=== PATIENT | male | born 1950 | race Caucasian/White ===

== ENCOUNTER 2016-12-13 02:56 | Inpatient (IN) | payer OTHER ==
[~2016-12-13] VITALS: Ht 182.9 cm; Wt 90.7 kg
[2016-12-13] MEDS ORDERED: ATORVASTATIN CA80 M1 PO (07:53)
[2016-12-13] MEDS ORDERED: METOPROLOL SUCC50 M2 PO (07:53)
[2016-12-13] MEDS ORDERED: EFFIENT10 M1 PO (07:54)
[2016-12-13] MEDS ORDERED: ASPIRIN EC81 M1 PO (07:55)
[2016-12-13 17:00] VITALS: BP 128/72
--- NOTE | 2016-12-13 17:39 | Operative Report ---
Operative/Inv Procedure Report Surgery Date: 12/13/16 Name of Procedure: Left common femoral thromboendarterectomy with bovine patch angioplasty Pre-Operative Diagnosis: PAD with severe life limiting bilateral claudication Post-Operative Diagnosis: PAD with severe life limiting bilateral claudication Estimated Blood Loss: 450 cc Surgeon/Inventory Control Supervisor: FERNANDO LUNA,AYLEEN ARRINGTON MD, ALFREDO (asst.) Anesthesia: general endotracheal tube Drains: Buenrostro catheter removed at completion of procedure Specimens: Sent to pathology Complications: None Condition: Stable to PACU Operative Indication: 66-year-old male with a history of severe PAD. He had a right femoropopliteal bypass many years ago which is patent. He has recently had severe left-sided life limiting claudication. He has a high-grade left femoral stenosis. Risks benefits and alternatives were discussed with the patient including bleeding, infection, nerve injury and limb loss. He decided to proceed with intervention. Operative/Procedure Note Note: Patient brought to the operating room and laid supine on the table. A timeout was held in accordance with [place] policy. Left longitudinal femoral incision ensued. Sharp dissection proceeded down through skin and subcutaneous tissue. This was done with Metzenbaum scissors and Bovie electrocautery. The common femoral artery was noted to be densely calcified without a pulse. The common femoral, profunda femoris and SFA were dissected free. The external iliac artery was controlled. The patient was post with 6000 units of heparin. The artery was then opened with Younger scissors and an 11 blade. The artery was densely calcified. A long femoral endarterectomy with bovine patch angioplasty then ensued. A bovine pericardial patch was sewn onto the artery after a dense plaque was removed with a [place] elevator. It was passed off the field as specimen. Attention was turned to closure of the artery. A series of Prolene sutures were used to tack down the distal superficial femoral artery. The artery was then repaired with 50 and 6-0 Prolene sutures. The pericardial patch was secured with a running 5-0 Prolene suture. The wound was copiously irrigated. Several areas of bleeding were noted at the distal and proximal portion of the patch. A clamp injury was repaired with interrupted Prolene sutures. A rent in the distal SFA was also repaired with interrupted Prolene sutures. Hemostasis proved to be excellent. The wound was irrigated and then closed with interrupted 2-0 and 3-0 Vicryl sutures. The skin was closed with nylon stures and interrupted tamiko. The patient tolerated the procedure well was transported to the floor with an intact neurovascular exam. He had dopplerable signals in both feet.
--- NOTE | 2016-12-13 17:42 | PN- Vascular Surgery ---
Subjective Subjective: Post Op Note Patient without c/o. Pain controlled. Denies numbness/tingling in LLE. Patient has remained flat for 1 hour post op and is bedrest tonight. Denies n/v. Denies CP/SOB. Objective Vital Signs and I&Os AVSS Physical Exam: Gen: NAD, comfortable, A&Ox3 Chest: NRD, breathing comfortably on 2L NC. RRR. Abd: Soft, NT, ND Ext: left groin/leg incision c/d/i. No surrounding erythema/swelling. 2+ DP pulses BLE. 2+ PT RLE. Dopplerable DP LLE. No calve swelling/TTP. Current Medications: Current Medications Sig/Supriya Start time Last Medication Dose Route Stop Time Status Admin Aspirin Buffered 81 MG DAILY 12/14 1000 DC PO Aspirin Buffered 81 MG DAILY 12/14 1000 UNVr PO Atorvastatin Calcium 80 MG DAILY 12/14 1000 DC PO Atorvastatin Calcium 80 MG DAILY 12/14 1000 UNVr PO Dextrose/Sodium 1,000 ML .[id number] 12/13 1745 UNVr Chloride IV Docusate Sodium 100 MG DAILY NEEDED PRN 12/13 1745 UNVr PO Metoprolol Succinate 50 MG DAILY 12/14 1000 DC PO Metoprolol Succinate 50 MG DAILY 12/14 1000 UNVr PO Morphine Sulfate 2 MG Q2P PRN 12/13 1745 UNVr IV Morphine Sulfate 4 MG Q2P PRN 12/13 1745 UNVr IV Ondansetron HCl 4 MG Q6P PRN 12/13 1745 UNVr IV Oxycodone/ 1 TAB Q4P PRN 12/13 1745 UNVr Acetaminophen PO Oxycodone/ 2 TAB Q4P PRN 12/13 1745 UNVr Acetaminophen PO Prasugrel 10 MG DAILY 12/14 1000 DC PO Prasugrel 10 MG DAILY 12/14 1000 UNVr PO Assessment/Plan Assessment/Plan 66yo M POD#0 s/p left femoral endarterectomy. AVSS, patient stable. - ASA 325mg PO x1 tonight - asa 81mg po and effient 10mg po QD starting tomorrow - bedrest tonight, oob and ambulate in a.m. - pain control - advance diet as tolerated - ancef x1 dose post op for ppx - I/O's - dc IVF when tolerating diet - ALPS - neuro checks Q4H Core Measures/Miscellaneous Venous Thromboembolism VTE Risk Factors: Age > 40, Surgery VTE Contraindications: No Contraindications VTE Prophylaxis Ordered Inpt: Mech & Pharm VTE Diagnosis: No Beta Suzanne Is Beta Suzanne a Home Med? Yes If Yes, Was This Ordered Today? Yes Antibiotics Is Patient on Antibiotics? Yes (x1 dose post op)
[2016-12-13 19:36] VITALS: BP 112/56
--- NOTE | 2016-12-13 20:13 | NUR ---
17:00- PT ARRIVED TO FLOOR VIA STRETHER FROM PACU. REPORT REC'D FROM RBYSON RODEO PERFORMER. SU REMOVED IN PACU. PT DUE TO VOID BY 21:00. L GROIN DRESSING C,D,I. PALPABLE PULSES TO L PEDAL AND L POSTERIOR TIBIAL. PER SURG DANIELLE MORALES, PT TO REMAIN ON BEDREST TONIGHT AND CAN BE OOB TOMORROW MORNING. 18:00- PT VOIDED 300 ML.
[2016-12-13 21:30] VITALS: BP 112/60
[2016-12-13 23:13] VITALS: BP 118/52
[2016-12-14 05:00] VITALS: BP 102/70
--- NOTE | 2016-12-14 07:45 | PN- Vascular Surgery ---
Subjective Subjective: NAEO. Patient without new c/o. Pain well controlled. States he has good sensation in his LLE. Has not been OOB yet, was on bedrest overnight. Tolerating diet without n/v. +flatus, no BM. Voiding. Denies CP/SOB. Objective Vital Signs and I&Os Vital Signs Date Time Temp Pulse Resp B/P Pulse O2 O2 Flow FiO2 Ox Delivery Rate 12/14 0500 97.1 58 20 102/70 95 Room Air 12/13 2313 97.7 66 20 118/52 96 Room Air 12/13 2130 97.7 65 20 112/60 95 Room Air 12/13 1936 97.6 68 20 112/56 96 Room Air 12/13 1700 97.8 70 18 128/72 95 Room Air Intake & Output 12/14 0800 12/14 0000 12/13 1600 12/13 0800 12/13 0000 12/12 1600 Intake Total 225 Output Total 300 Balance -75 Intake, IV 225 Output, Urine 300 Patient 200 lb Weight Physical Exam: Gen: NAD, comfortable, A&Ox3 Chest: NRD, breathing comfortably on 2L NC. RRR. Abd: Soft, NT, ND Ext: left groin/leg incision c/d/i. No surrounding erythema/swelling. 2+ DP pulses BLE. 2+ PT RLE. Dopplerable DP LLE. No calve swelling/TTP. Current Medications: Current Medications Sig/Supriya Start time Last Medication Dose Route Stop Time Status Admin Acetaminophen 1,000 MG .STK-MED ONE 12/13 1029 DC IV 12/13 1030 Aspirin 325 MG .STK-MED ONE 12/13 1458 DC PO 12/13 1459 Aspirin Buffered 81 MG DAILY 12/14 1000 DC PO Aspirin Buffered 81 MG DAILY 12/14 1000 AC PO Atorvastatin Calcium 80 MG DAILY@1700 12/14 1700 AC PO Atorvastatin Calcium 80 MG DAILY 12/14 1000 DC PO Cefazolin Sodium 2 GM IQ8 12/14 0000 DC 12/13 N/A 1 UNIT IV 12/14 0029 2315 Dextrose/Sodium 1,000 ML .[id number] 12/13 1745 DC 12/14 Chloride IV 0428 Docusate Sodium 100 MG DAILY NEEDED PRN 12/13 1745 AC PO Fentanyl Citrate 250 MCG .STK-MED ONE 12/13 1029 DC IM 12/13 1030 Hydromorphone HCl 2 MG .STK-MED ONE 12/13 1145 DC IM 12/13 1146 Metoprolol Succinate 50 MG DAILY 12/14 1000 DC PO Metoprolol Succinate 50 MG DAILY 12/14 1000 AC PO Midazolam HCl 2 MG .STK-MED ONE 12/13 1029 DC IM 12/13 1030 Morphine Sulfate 2 MG Q2P PRN 12/13 1745 AC IV Morphine Sulfate 4 MG Q2P PRN 12/13 1745 AC IV Ondansetron HCl 4 MG Q6P PRN 12/13 1745 AC IV Oxycodone/ 1 TAB Q4P PRN 12/13 1745 AC 12/14 Acetaminophen PO 0406 Oxycodone/ 2 TAB Q4P PRN 12/13 1745 AC Acetaminophen PO Prasugrel 10 MG DAILY 12/14 1000 DC PO Prasugrel 10 MG DAILY 12/14 1000 AC PO Assessment/Plan Assessment/Plan 66yo M POD#1 s/p left femoral endarterectomy. AVSS, patient stable. - asa 81mg po and effient 10mg po QD starting today - oob and ambulate, first time with assist - pain control - advance diet as tolerated - ancef complete, no more abx - I/O's - dc IVF - ALPS - neuro checks - f/u a.m. labs - dc home this morning if labs stable - will d/w attending Core Measures/Miscellaneous Venous Thromboembolism VTE Risk Factors: Age > 40, Surgery VTE Contraindications: No Contraindications VTE Prophylaxis Ordered Inpt: Mech & Pharm VTE Diagnosis: No Beta Suzanne Is Beta Suzanne a Home Med? Yes If Yes, Was This Ordered Today? Yes Antibiotics Is Patient on Antibiotics? No
[2016-12-14] MEDS ORDERED: PERCOCET 5-3251 EACH PO (07:46)
--- NOTE | 2016-12-14 07:50 | Patient Discharge Instructions ---
Discharge Instructions General Discharge Information You were seen/treated for: PAD with severe life limiting bilateral claudication You had these procedures: 12/13/16 Left common femoral thromboendarterectomy with bovine patch angioplasty Watch for these problems: Redness, swelling, drainage, fever, signs of infection. Increased left lower extremity pain, numbness, paresthesia. Excessive bleeding. Uncontrolled pain. Chest pain. Shorts of breath. Do not soak the wound: Yes No bath, but you may shower: Yes Diet Continue normal diet: Yes Activity Full Activity/No Limits: No Pounds, do NOT lift more than: 15 Activity Limited to: Weight bear as tolerated Other activity limits: No strenuous activity and/or exercise Additional ACTIVITY Info: Please follow directions provided by surgeon in office. Acute Coronary Syndrome Inclusion Criteria At DC or during hospital stay patient has or had the following: ACS DIAGNOSIS No Discharge Core Measures Meds if any: Prescribed or Continued at Discharge Meds if any: NOT Prescribed or Continued at Discharge Congestive Heart Failure Inclusion Criteria At DC or during hospital stay patient has or had the following: CHF DIAGNOSIS No Discharge Core Measures Meds if any: Prescribed or Continued at Discharge Meds if any: NOT Prescribed or Continued at Discharge Cerebrovascular accident Inclusion Criteria At DC or during hospital stay patient has or had the following: CVA/TIA Diagnosis No Discharge Core Measures Meds if any: Prescribed or Continued at Discharge Meds if any: NOT Prescribed or Continued at Discharge Venous thromboembolism Inclusion Criteria VTE Diagnosis No VTE Type NONE VTE Confirmed by (Test) NONE Discharge Core Measures - Per Current guidelines, there needs to be overlap - treatment for the first 5 days of Warfarin therapy. - If discharged on Warfarin prior to 5 days of - overlap therapy, the patient will need to be - assessed for post discharge needs including - *Post discharge parental anticoagulation - *Warfarin and/or parental anticoagulation education - *Follow up date to check INR post discharge At least 5 days overlap therapy as Inpatient No Meds if any: Prescribed or Continued at Discharge Note: Overlap Therapy is Warfarin and Anticoagulant Meds if any: NOT Prescribed or Continued at Discharge
--- NOTE | 2016-12-14 07:52 | Surg Short-stay <48hrs Dis Sum ---
Visit Information Visit Dates Admission Date: 12/13/16 Discharge Date: 12/14/2016 Surgical Short Stay DC Summary Admission Diagnosis: PAD with severe life limiting bilateral claudication Final Diagnosis: Same Procedure(s): 12/13/16 Left common femoral thromboendarterectomy with bovine patch angioplasty. Summary/Significant Findings: Patient admitted to floor following procedure below. Patient ambulated POD#1. Pain controlled. He maintained good pulses in LLE throughout stay. Patient continued to progress well. Upon discharge patient is afebrile, tolerating diet , pain controlled, ambulating well. Condition at Discharge: Good Discharge Disposition: home or self care Discharge instructions provided to patient/family: Yes Post discharge follow-up plan: Call office to confirm/schedule appointment.
[2016-12-14 09:08] LABS: ABSOLUTE BASOPHIL COUNT 0 /CUMM (0.0-0.2); ABSOLUTE EOSINOPHIL COUNT 0 /CUMM (0.0-0.7); ABSOLUTE GRANULOCYTE CT 9.9 /CUMM (1.4-6.5); ABSOLUTE LYMPH COUNT 2.1 /CUMM (1.2-3.4); BASOPHIL % 0.3 % (0.0-2.0); EOSINOPHIL % 0.4 % (0-5); GRANULOCYTE % 75.6 % (42.2-75.2); HEMATOCRIT 31.5 % (42-52); MEAN CORPUSCULAR HGB 27.8 PG (27.0-31.0); MEAN CORPUSCULAR VOLUME 84.2 FL (80.0-94.0); MEAN PLATELET VOLUME 9.4 FL (7.4-10.4); PLATELET COUNT 215 /CUMM (130-400); RBC DISTRIBUTION WIDTH 14.7 % (11.5-14.5); RED BLOOD CELL CT 3.74 /CUMM (4.70-6.10); WHITE BLOOD CELL COUNT 13.1 /CUMM (4.8-10.8)
[2016-12-14 09:16] VITALS: BP 122/50
== END 2016-12-14 11:17 | DRG 254 ==
LOC: ENRESERVDT → ENRESERVTM → ENPENDDIS 02:56 → SDA 02:56 → EDSEX 10:00 → SDA 10:00 → 2NA 17:22
PROVIDERS: Physician Assistant Surgical; ADMIT Surgery Vascular Surgery
PROC: 04CL0ZZ Extirpation of Matter from Left Femoral Artery, Open Approach (ICD-10-PCS; principal; 2016-12-13)
PROC: 04UL0KZ Supplement Left Femoral Artery with Nonautologous Tissue Substitute, Open Approach (ICD-10-PCS; 2016-12-13)
DX: I70.202 Unspecified atherosclerosis of native arteries of extremities, left leg (principal); I10 Essential (primary) hypertension; Z87.891 Personal history of nicotine dependence
CPT/HCPCS: 2NASP; 82436; 88304; J0131; J0690; J1644; J2405; J7042